=== PATIENT | female | born 1960 | race Caucasian/White ===

== ENCOUNTER 2016-10-26 18:14 | Emergency (ER) | payer SELFPAY ==
[~2016-10-26] VITALS: Ht 166.4 cm; Wt 118.7 kg
[~2016-10-26 18:14] MED LIST: ASPIR 8181 M1 PO; NAPROXEN500 MG PO; NOHOMEMEDS
[2016-10-26] MEDS ORDERED: CLEOCIN300 MG PO (19:38)
[2016-10-26] MEDS ORDERED: ULTRAM50 MG PO (19:38)
[2016-10-26 19:48] VITALS: BP 157/81
== END 2016-10-26 19:56 | disposition home or self-care (01) ==
LOC: EME 18:14 → RME 18:14
DX: K08.89 Other specified disorders of teeth and supporting structures (principal)
CPT/HCPCS: 99281; 99283

== ENCOUNTER 2017-09-12 07:29 | Emergency (ER) | payer OTHER ==
[~2017-09-12] VITALS: Ht 165.1 cm; Wt 120.4 kg
[~2017-09-12 07:29] MED LIST changes: +CLEOCIN300 MG PO; +ULTRAM50 MG PO
[2017-09-12 07:53] LABS: APPEARANCE CLEAR ((CLEAR)); BILIRUBIN NEGATIVE; BLOOD NEGATIVE; GLUCOSE (STRIP) NEGATIVE; KETONES NEGATIVE; LEUKOCYTES NEGATIVE; NITRITE POSITIVE; PROTEIN (STRIP) NEGATIVE; SPECIFIC GRAVITY 1.011 (1.000-1.030)
[2017-09-12 07:54] LABS: COLOR YELLOW ((YELLOW))
[2017-09-12 07:55] LABS: BACTERIA NONE SEEN /HPF; EPITHELIAL CELLS RARE /HPF; MUCUS NONE SEEN /LPF; RED BLOOD CELLS 0-5 /HPF (0-5); WHITE BLOOD CELLS 0-5 /HPF (0-5)
[2017-09-12] MEDS ORDERED: PERCOCET 5/31 TABLET PO (11:31)
[2017-09-12] MEDS ORDERED: VALIUM5 MG PO (11:31)
[2017-09-12] MEDS ORDERED: MOTRIN600 MG PO (11:31)
[2017-09-12 11:40] VITALS: BP 139/67
== END 2017-09-12 11:46 | disposition home or self-care (01) ==
LOC: EME 07:29
DX: M54.5 Low back pain (principal); M79.604 Pain in right leg; R20.0 Anesthesia of skin; R20.2 Paresthesia of skin; Z90.49 Acquired absence of other specified parts of digestive tract; Z79.82 Long term (current) use of aspirin; Z88.0 Allergy status to penicillin
CPT/HCPCS: 81003; 99281; 99284; J1100; J2270

== ENCOUNTER → 2017-09-23 | Outpatient (CLI) | payer OTHER ==
[~2017-09-23] MED LIST changes: +MOTRIN600 MG PO; +PERCOCET 5/31 TABLET PO; +VALIUM5 MG PO
== END | disposition home or self-care (01) ==
LOC: RAD 09:00 → MRI 11:02 → RAD 11:15
DX: M89.8X8 Other specified disorders of bone, other site (principal); M46.86 Other specified inflammatory spondylopathies, lumbar region; M48.061 Spinal stenosis, lumbar region without neurogenic claudication
CPT/HCPCS: 72148

== ENCOUNTER → 2017-10-15 | Outpatient (CLI) | payer OTHER | END | disposition home or self-care (01) | LOC: RAD 08:12 | DX: M47.896 Other spondylosis, lumbar region (principal); M54.5 Low back pain | CPT/HCPCS: 72120 ==

== ENCOUNTER → 2017-11-02 | Outpatient (CLI) | payer OTHER | END | disposition home or self-care (01) | LOC: RAD 10:44 | DX: J98.4 Other disorders of lung (principal) | CPT/HCPCS: 71260 ==

== ENCOUNTER 2017-11-30 11:40 | Day surgery (SDC) | payer OTHER ==
[~2017-11-30] VITALS: Ht 166.4 cm; Wt 117.0 kg
[~2017-11-30 11:40] MED LIST changes: +NEURONTIN100 MG PO
== END 2017-11-30 13:20 | disposition home or self-care (01) ==
LOC: PAIN 11:40 → SDC 12:30 → PAIN 12:30
DX: M54.16 Radiculopathy, lumbar region (principal); M51.26 Other intervertebral disc displacement, lumbar region; M51.36 Other intervertebral disc degeneration, lumbar region; M25.78 Osteophyte, vertebrae; M47.816 Spondylosis without myelopathy or radiculopathy, lumbar region; Z79.82 Long term (current) use of aspirin; Z88.0 Allergy status to penicillin; Z88.5 Allergy status to narcotic agent
CPT/HCPCS: J1100

== ENCOUNTER 2017-12-28 08:09 | Day surgery (SDC) | payer OTHER ==
[~2017-12-28] VITALS: Ht 166.4 cm; Wt 117.0 kg
== END 2017-12-28 10:07 | disposition home or self-care (01) ==
LOC: PAIN 08:09 → SDC 09:15 → PAIN 09:15
PROC: 3E0R3BZ Introduction of Anesthetic Agent into Spinal Canal, Percutaneous Approach (ICD-10-PCS; principal; 2017-12-28)
PROC: 3E0R33Z Introduction of Anti-inflammatory into Spinal Canal, Percutaneous Approach (ICD-10-PCS; principal; 2017-12-28)
DX: M51.16 Intervertebral disc disorders with radiculopathy, lumbar region (principal); M47.26 Other spondylosis with radiculopathy, lumbar region; Z79.82 Long term (current) use of aspirin; Z88.0 Allergy status to penicillin; Z88.5 Allergy status to narcotic agent
CPT/HCPCS: J1100